=== PATIENT | male | born 1960 | race Caucasian/White ===

== ENCOUNTER 2019-03-04 16:10 | Emergency (ER) | payer MEDICAID ==
[~2019-03-04] VITALS: Ht 175.3 cm; Wt 78.0 kg
[~2019-03-04 16:10] MED LIST: AMLO10TA8 PO
--- NOTE | 2019-03-04 16:48 | NUR ---
PT TO X RAY NOW
[2019-03-04 16:57] LABS: BASOPHILS # (AUTO) 0.02 x10^3/uL (0-0.1); BASOPHILS % (AUTO) 0 % (0-1); EOSINOPHILS # (AUTO) 0.01 x10^3/uL (0-0.4); EOSINOPHILS % (AUTO) 0 % (1-7); LYMPHOCYTES % (AUTO) 26 % (22-44); MD NO; MEAN CORPUSCULAR HEMOGLOBIN 27.6 pg (27.5-34.5); MEAN CORPUSCULAR HGB CONC 33.4 g/dL (33.2-36.2); MEAN CORPUSCULAR VOLUME 82.5 fL (81-97); MEAN PLATELET VOLUME 8.2 fL (7.4-10.4); MONOCYTES # (AUTO) 0.49 x10^3/uL (0.2-0.8); MONOCYTES % (AUTO) 8 % (2-9); NEUTROPHILS # (AUTO) 4.05 x10^3/uL (1.8-6.8); NEUTROPHILS % (AUTO) 66 % (42-75); PLATELET COUNT 170 x10^3/uL (130-400); RED BLOOD COUNT 4.72 x10^6/uL (4.38-5.82); RED CELL DISTRIBUTION WIDTH 17.1 % (9.4-14.8)
[2019-03-04] MEDS ORDERED: SODIUM CHLORIDE FLUSH 10ML SYR IVF ONE (17:00)
[2019-03-04] MEDS ORDERED: ALBUTEROL/IPRATROPIUM 2.5MG/0.5MG, 3 ML NPPB ONE (17:00)
[2019-03-04 17:07] LABS: ALBUMIN 2.8 g/dL (3.4-5.0); ANION GAP 7 mmol/L (5-15); CHLORIDE 104 mmol/L (98-107)
[2019-03-04] MEDS ORDERED: ALBUTEROL/IPRATROPIUM 2.5MG/0.5MG, 3 ML ONE (17:11)
[2019-03-04 17:14] LABS: ALANINE AMINOTRANSFERASE 104 U/L (12-78); ALKALINE PHOSPHATASE 83 U/L (45-117); BILIRUBIN,TOTAL 0.6 mg/dL (0.2-1.0); CREATININE 0.99 mg/dL (0.7-1.3); TOTAL PROTEIN 7.4 g/dL (6.4-8.2); TROPONIN I < 0.015 ng/mL (0.000-0.045)
--- NOTE | 2019-03-04 17:47 | NUR ---
TASK RN: FIRST CONTACT WITH PT: Pt resting on gurney wearing face mask. Pt has unlabored respirations with occasional weak cough. Pt connected to NIBP, continous pulse ox, and engine monitor. Provided pt medication per EMAR. Pt appreciative. Provided pt tissue box per request, pt appreciative. NADN. Pt waiting second breathing treatment at this time from RT. No other needs requested a tthis time. Call light within reach. All safety measures in place.
[2019-03-04 19:14] VITALS: BP 155/82
== END 2019-03-04 19:34 | disposition home or self-care (01) ==
LOC: ED 16:48
DX: J98.01 Acute bronchospasm (principal); R06.00 Dyspnea, unspecified; I10 Essential (primary) hypertension; Z87.891 Personal history of nicotine dependence
CPT/HCPCS: 36415; 71046; 80053; 83880; 84484; 85025; 94640; 99284; J7512; J7620

== ENCOUNTER 2021-07-07 02:54 | Emergency (ER) | payer MEDICAID ==
[~2021-07-07] VITALS: Ht 175.3 cm; Wt 75.0 kg
[~2021-07-07 02:54] MED LIST changes: +AMLO-211 PO; -AMLO10TA8 PO
--- NOTE | 2021-07-07 03:15 | NUR ---
PT C/O OF GRINDING SAW PIECD CAUGHT IN PT'S RIGHT UPPER ARM PT STATES HE WAS CUTTING STEEL AND BLADE SHATTERED AND STUCK IN HIS ARM CMS INTACT DISTAL TO INJURY. 2+ radial pulses. attached to card/sp02/bp monitors. vss. pt appears in pain pa at bedside for eval bed in low, rails engaged, callm light on lap. PT IS ON HOSPICE. FRIENDN AT BEDSIDE. PT REPORTS TAKING 7.5 MG OF MORPHINE 6 HOURS AGO
[2021-07-07] MEDS ORDERED: ONDANSETRON 2MG/ML, 2ML ONE (03:25)
[2021-07-07] MEDS ORDERED: MORPHINE SULFATE 4 MG/ML, 1ML ONE (03:25)
[2021-07-07] MEDS ORDERED: LIDOCAINE 1%-EPI 1:100K, 20ML ONE (03:25)
[2021-07-07] MEDS ORDERED: MORPHINE SULFATE 4 MG/ML, 1ML IVPush ONE (03:30)
[2021-07-07] MEDS ORDERED: LIDOCAINE 1%-EPI 1:100K, 20ML SQ ONE (03:30)
[2021-07-07] MEDS ORDERED: ONDANSETRON 2MG/ML, 2ML IVPush ONE (03:30)
--- NOTE | 2021-07-07 03:30 | NUR ---
XRAY AT BEDSIDE
--- NOTE | 2021-07-07 04:04 | NUR ---
PT RESTING IN BED WITH FRIEND AT BEDSIDE. VSS. 2+ radial pulses in right arm pt laceration numbed and irrigated with ns with betadine applied to pa order. nadn. pt pain managed. A&Ox4, breathing even and unlabored. wctm.
[2021-07-07] MEDS ORDERED: FLUORESCEIN OPHTHALMIC 1 MG STRIP ONE (04:41)
[2021-07-07] MEDS ORDERED: BACITRACIN ZINC OINT 500U/GM, 0.9 GM ONE (04:42)
[2021-07-07] MEDS ORDERED: PROPARACAINE OPHTH 0.5%, 15ML ONE (04:42)
--- NOTE | 2021-07-07 04:52 | NUR ---
pt [id number] in bed. edilberto. vss. tolerated procedures well. hog handler ccleansing and bandaging pt wound to hospital protocol. wc. er md at bedside evaluating pts eye.
[2021-07-07 05:32] VITALS: BP 146/91
--- NOTE | 2021-07-07 05:34 | NUR ---
Patient/Caregiver given discharge instructions and they have confirmed that they understand the instructions. Patient ambulatory with steady gait. NAD, all questions answered appropriately, denies additional needs at this time. No personal belongings left in room after discharge.
== END 2021-07-07 05:35 | disposition home or self-care (01) ==
LOC: ED 05:20
DX: S41.111A Laceration without foreign body of right upper arm, initial encounter (principal); S05.01XA Injury of conjunctiva and corneal abrasion without foreign body, right eye, initial encounter; F17.210 Nicotine dependence, cigarettes, uncomplicated; I10 Essential (primary) hypertension; X58.XXXA Exposure to other specified factors, initial encounter; Y93.89 Activity, other specified; Y92.009 Unspecified place in unspecified non-institutional (private) residence as the place of occurrence of the external cause; Y99.8 Other external cause status
CPT/HCPCS: 12032; 73060; 96374; 96375; 99284; J2270; J2405